=== PATIENT | male | born 1955 | race Caucasian/White ===

== ENCOUNTER 2019-02-10 13:14 | Outpatient (CLI) | payer MEDICARE, BC | END 2019-02-10 13:15 | disposition home or self-care (01) | LOC: SC 13:14 | PROVIDERS: ATTEND Internal Medicine Pulmonary Disease | DX: G47.10 Hypersomnia, unspecified (principal); R06.81 Apnea, not elsewhere classified; G47.8 Other sleep disorders; R41.89 Other symptoms and signs involving cognitive functions and awareness; R06.83 Snoring | CPT/HCPCS: 99203; G0463; 99212 ==

== ENCOUNTER 2019-03-09 20:42 | Outpatient (CLI) | payer MEDICARE, BC | END 2019-03-09 20:43 | disposition home or self-care (01) | LOC: SC 20:42 | PROVIDERS: ATTEND Internal Medicine Pulmonary Disease | DX: G47.33 Obstructive sleep apnea (adult) (pediatric) (principal); E66.3 Overweight; Z68.31 Body mass index [BMI] 31.0-31.9, adult | CPT/HCPCS: 95810 ==

== ENCOUNTER 2019-04-16 20:34 | Outpatient (CLI) | payer MEDICARE | END 2019-04-16 20:35 | disposition home or self-care (01) | LOC: SC 20:34 | PROVIDERS: ATTEND Internal Medicine Pulmonary Disease | DX: G47.33 Obstructive sleep apnea (adult) (pediatric) (principal) | CPT/HCPCS: 95811 ==

== ENCOUNTER 2019-04-28 11:07 | Outpatient (CLI) | payer MEDICARE ==
--- NOTE | 2019-04-28 12:37 | SLEEP CARE CONSULTATION ---
Information from patient questionnaire entered by Almaz Kirkpatrick. I have reviewed and concur with the information entered by Almaz Kirkpatrick. This document represents the service I personally performed and the decisions made by me, Thalia Aragon RN, MSN, [employer]. History of Present Illness Initial [place] Sleepiness Scale score: 5 Current [place] Sleepiness Scale score: 3 Additional HPI information: Aron CARVER returns for follow up of the recently performed manual titration study polysomnography. I explained the pathophysiology behind obstructive sleep apnea and his manual titration study results. I reviewed the impact of weight changes on sleep apnea. Patient has already started losing weight with his spouse since his initial visit. After some discussion, the patient opted to go with the nasal CPAP therapy. Nasal autoCPAP set at [id number] will be ordered per manual titration study. I explained how CPAP machine works with sample devices [employer] similar to his spouses and what to expect when using the machine. Using CPAP every night in order to get used to it was emphasized. Patient advised to put CPAP mask on before getting into bed so as not to fall asleep without CPAP. To assist acclimation to CPAP use, it could also be used for a short time during day while reading or watching TV. The patient was instructed to call the CPAP supplier to discuss any mechanical problem that may occur. If the mask given is uncomfortable or is difficult to keep on through the night even with adjustment, contact the CPAP supplier as many will replace with another mask style if notified before 30 days. If snoring or perceives is not getting enough air or too much air from the machine, notify this office. AAS patient education PAP tips reviewed and given to patient. Patient counseled not drink alcohol less than 4 hours before bedtime as it can increase snoring and apnea. Patient does not drink alcohol. Patient was cautioned about risks of drowsy driving until sleepiness symptoms resolve. Patient denies drowsy driving. Sleep Study - Polysomnography Polysomnography findings: The quality of the study is good. CPAP was initiated at 4 cmH2O and titrated up to CPAP at 13 cmH2O. CPAP at 12 cmH2O appeared to be optimal (AHI of 3.8 per hour on the pressure). There was supine REM sleep on the pressure. Oxygen saturation was mild due to frequent residual r espiratory events on lower CPAP settings. The patient appeared to have tolerated positive airway pressure therapy fairly well. The patients sleep efficiency was reduced due to prolonged awakenings during the night. The sleep architecture was otherwise normal. There was no significant periodic limb movement of sleep. Cardiac rhythm was normal sinus rhythm without significant arrhythmia. No abnormal behavior (parasomnia) observed during the night. Allergies and Home Medications Known drug allergies: Yes (morphine) Home medication list reviewed: Yes Allergy and home medication list: Allergies: Morphine Physical Exam Heart Rate: 68 O2 Saturation: 98 Height: 5 ft 11 in Weight (kg): 95.073 kg Body Mass Index: 29.2 BMI Classification: Overweight Impression and Plan 1. Obstructive Sleep Apnea-Hypopnea Syndrome, severe, with lowest oxygen saturation of 75% that showed optimal pressure of CPAP set at [id number] at manual titration study. Probably this is the cause of the patients symptoms of unrefreshed sleep, and fatigue. Positive pressure therapy could benefit his blood pressure. He reports that he monitors blood pressure at home and follows up with PCP. I discussed how his weight loss can reduce his blood pressure as well has his apnea severity. His weight was similar at his last study as today per patient. I also discussed how untreated severe apnea can increased risks of hypertension, cardiac disease and stroke. Similarly, untreated hypertension can increase risks of cardiac disease and stroke. As mentioned above, the patient will be started on nasal CPAP therapy with pressure set at 12 cmH2O. Compliance guidelines also reviewed. A copy of compliance guidelines will be given for reference at check out. Because the apnea is more severe supine, I instructed to avoid sleeping supine using pillow positioning until able to start CPAP use and will head of bed elevated 30-40 degrees to decrease some apnea risk. * Nasal auto CPAP therapy, pressure at 12 cm H2O. * Continue to lose weight. * Avoid alcohol consumption near bedtime. * Avoid supine sleep until using CPAP. * The patient is again cautioned about driving until sleepiness completely resolves. * Return one month after CPAP obtained. I will assess response to therapy and compliance at that time. I spent 100% of this 35 minute visit face to face with the patient with greater than 50% of this was spent time counseling the patient and coordination of care.
== END 2019-04-28 11:08 | disposition home or self-care (01) ==
LOC: SC 11:07
PROVIDERS: ATTEND Nurse Practitioner Family
DX: G47.33 Obstructive sleep apnea (adult) (pediatric) (principal)
CPT/HCPCS: 99214; G0463; 99212

== ENCOUNTER 2019-08-12 10:55 | Outpatient (CLI) | payer MEDICARE ==
--- NOTE | 2019-08-12 11:26 | SLEEP CARE CONSULTATION ---
Information from patient questionnaire entered by Almaz Kirkpatrick. I have reviewed and concur with the information entered by Almaz Kirkpatrick. This document represents the service I personally performed and the decisions made by me, Tammy Oconnor MD, [facility]. History of Present Illness Previous diagnosis: Severe, Obstructive Sleep Apnea-Hypopnea Syndrome AHI: 48.5 Reason for follow up: first compliance Equipment type: CPAP Equipment obtained from: [employer] Mask brand: Respironics Prior sleep studies: Yes HPI additional information: HPI: Mr. Aaron returned today for follow up of nasal CPAP therapy. He was diagnosed to have severe obstructive sleep apnea-hypopnea syndrome. The patient wears a Respironics DreamWear full face mask. [employer] is his durable medical supplier. He reports using the device nightly and all through the night at first. Now he uses it intermittently because the power supply block is not working and his he has to borrow his wifes. The compliance report between 06/01 and 06/30/19 shows usage in 30 nights out of the 30 nights, averaging 8 hours a night. The > 4 hour compliance rate for the 30 days is 100%. He complained of no particular problem with the device such as soreness on the face, dry nose, epistaxis, nasal congestion or headache. He thinks that the pressure at 12 cmH2 O is too high and lowered it himself to 10.5 cmH2O. On the CPAP therapy he notices improvement in his sleep quality, and that he wakes up feeling fresher in the morning and more awake/alert during the day. [place] Sleepiness Scale score is 2. His notices no snore at all. The average residual AHI is 17 (was 13.7 on 12 cmH2O); and average time in large leak per day is 48 minutes. CPAP Compliance Data - Data Reviewed with Patient Average duration of nightly device use: 7h 58m Compliance rate %: 100 Current pressure setting (cmH2O): 12 Humidity settin Heated hose settin Average residual AHI: 13.7 Average large leak: 48m 8s Subjective Patient concerns: reports: aerophagia, mask discomfort, dry mouth, nose, throat, other (nasolacrimal regurgitation) Initial [place] Sleepiness Scale score: 5 Current [place] Sleepiness Scale score: 2 Allergies and Home Medications Drug allergies reviewed: Yes Home medication list reviewed: Yes Review of Systems Review of systems same as previous: Yes Physical Exam Weight: 225 lb Impression and Plan IMPRESSION: 1. Obstructive Sleep Apnea-Hypopnea Syndrome, severe, with the patient doing fairly well on nasal CPAP therapy. He has good compliance and significant clinical improvement. The current pressure appears comfortable but ineffective, possible due to air leak. Overall, he is very satisfied with treatment and plans to continue with it long-term. I recommend a new full face mask. PLAN: 1. Continue with CPAP set 10.5 cmH2O for now. 2. Try [employer] AirTouch F-20 full face mask. Prescription written. 3. Return in one two months to recheck the effectiveness of the treatment. We may want to put his device to autoCPAP set between 10 and 15 cmH2O. I spent 100% of this 20 minute visit face to face with the patient with greater than 50% of this was spent time counseling the patient and coordination of care.
== END 2019-08-12 10:56 ==
LOC: SC 10:55
PROVIDERS: ATTEND Internal Medicine Pulmonary Disease
DX: G47.33 Obstructive sleep apnea (adult) (pediatric) (principal)
CPT/HCPCS: 99212; 99213

== ENCOUNTER 2019-10-21 08:57 | Outpatient (CLI) | payer MEDICARE, OTHER ==
--- NOTE | 2019-10-21 12:07 | SLEEP CARE CONSULTATION ---
Information from patient questionnaire entered by Almaz Kirkpatrick. I have reviewed and concur with the information entered by Almaz Kirkpatrick. This document represents the service I personally performed and the decisions made by me, Tammy Oconnor MD, [facility]. History of Present Illness Previous diagnosis: Severe, Obstructive Sleep Apnea-Hypopnea Syndrome AHI: 48.5 Reason for follow up: other (2 month ) Equipment type: CPAP Equipment obtained from: [employer] Mask style: Full face Prior sleep studies: Yes HPI additional information: HPI: Mr. Aaron returned today for follow up of nasal CPAP therapy. He was diagnosed to have severe obstructive sleep apnea-hypopnea syndrome. The patient now wears a [employer] AirTouch F-20 full face mask and likes it a lot. [employer] is his durable medical supplier. He reports uses the device every night and all night. The compliance report shows usage in 57 nights out of the 60 nights, averaging 6.8 hours a night. The > 4 hour compliance rate for the 60 days is 83.3%. He complained of no particular problem with the device such as soreness on the face, dry nose, epistaxis, nasal congestion or headache. He thinks that the pressure at 10.5 cmH2O is just right. On the CPAP therapy he notices improvement in his sleep quality, and that he wakes up feeling fresher in the morning and more awake/alert during the day. [place] Sleepiness Scale score is 2. His notices no snore at all. The average residual AHI is 12.4 (but since September 15 when he changed the mask, it has been near 1); and average time in large leak per day is 14 (was 48) minutes. CPAP Compliance Data - Data Reviewed with Patient Average duration of nightly device use: 6h 52m Compliance rate %: 83.3 Current pressure setting (cmH2O): 10.5 Humidity settin Heated hose settin Average residual AHI: 12.4 Average large leak: 14m 34s Subjective Current pressure setting perceived as: comfortable Initial [place] Sleepiness Scale score: 5 Current [place] Sleepiness Scale score: 2 Allergies and Home Medications Drug allergies reviewed: Yes Home medication list reviewed: Yes Review of Systems Review of systems same as previous: Yes Physical Exam Height: 5 ft 11 in Weight: 210 lb Body Mass Index: 29.2 BMI Classification: Overweight Impression and Plan IMPRESSION: 1. Obstructive Sleep Apnea-Hypopnea Syndrome, severe, with the patient now doing very well on nasal CPAP therapy. He has good compliance and significant clinical improvement. The current pressure appears comfortable and effective after he switched to the [employer]Med AirTouch F-20 full face mask. Overall, he is very satisfied with treatment and plans to continue with it long-term. No adjustment is necessary. PLAN: 1. Continue with CPAP set 10.5 cmH2O for now. 2. Return for follow up in a year or earlier if there is any problem. I spent 100% of this visit face to face with the patient with greater than 50% of this was spent time counseling the patient and coordination of care.
== END 2019-10-21 08:58 | disposition home or self-care (01) ==
LOC: SC 08:57
PROVIDERS: ATTEND Internal Medicine Pulmonary Disease
DX: G47.33 Obstructive sleep apnea (adult) (pediatric) (principal)
CPT/HCPCS: 99213; G0463; 99212

== ENCOUNTER 2023-04-09 07:44 | Outpatient (CLI) | payer MEDICARE, OTHER ==
--- NOTE | 2023-04-09 11:59 | Ultrasound Report ---
PROCEDURE: Bladder INDICATIONS: URINARY URGENCY TECHNIQUE: Real-time scanning was performed of the bladder, with image documentation. COMPARISON: None FINDINGS: Bladder: Pre-void bladder volume is 294 mL. Post-void residual is 144 mL. Pre-void images demonstr ate no intraluminal stones. Debris is present within the bladder lumen. On Pre-void images, both ure teral jets are noted with color Doppler interrogation. (Of note, ureteral jets may not be detectable in up to 25% of cases due to insufficient differences in specific gravity between ureteral and bladd er urine). Miscellaneous: No free pelvic fluid. Approximate prostate gland dimensions of 5.1 x 4.8 x 5.1 cm, v olume 65 cc. IMPRESSION: 1. Post void residual urinary bladder volume of 144 mL. 2. Debris is present in the urinary bladder, a nonspecific finding that can be seen in setting of uri nary concentration or infection. 3. Prostatomegaly. Reviewed by: Obi Norton MD on 04/09/2023 11:58 AM PDT Approved by: Obi Norton MD on 04/09/2023 11:58 AM PDT Station ID: [id number]
== END 2023-04-09 07:45 | disposition home or self-care (01) ==
LOC: DI 07:44
PROVIDERS: ATTEND Student in an Organized Health Care Education/Training Program
DX: N52.9 Male erectile dysfunction, unspecified (principal); R39.15 Urgency of urination; R35.0 Frequency of micturition; N40.1 Benign prostatic hyperplasia with lower urinary tract symptoms